=== PATIENT | male | born 1960 | race Caucasian/White ===

== ENCOUNTER 2024-04-15 09:49 | Outpatient (CLI) | payer OTHER, SELFPAY | END 2024-04-15 09:50 | disposition home or self-care (01) | PROVIDERS: PCP Family Medicine; Visit Provider Family Medicine | DX: Z00.00 Encounter for general adult medical examination without abnormal findings (principal); R97.20 Elevated prostate specific antigen [PSA]; Z13.1 Encounter for screening for diabetes mellitus | CPT/HCPCS: 80048; G0103 ==

== ENCOUNTER 2025-04-21 10:16 | Outpatient (CLI) | payer BC, SELFPAY | END 2025-04-21 10:17 | disposition home or self-care (01) | PROVIDERS: PCP Family Medicine; Visit Provider Family Medicine | DX: R97.20 Elevated prostate specific antigen [PSA] (principal); Z13.228 Encounter for screening for other metabolic disorders; Z13.21 Encounter for screening for nutritional disorder | CPT/HCPCS: 80048; 82607; 84153 ==

== ENCOUNTER 2025-10-27 08:22 | Outpatient (CLI) | payer BC, SELFPAY | END 2025-10-27 08:23 | disposition home or self-care (01) | LOC: NFLDREF 11-01 09:33 | PROVIDERS: PCP Family Medicine; Referring Provider Family Medicine; Visit Provider Family Medicine | DX: R97.20 Elevated prostate specific antigen [PSA] (principal) | CPT/HCPCS: 84153 ==